=== PATIENT | female | born 1950 | race Caucasian/White ===

== ENCOUNTER 2017-11-25 08:25 | Emergency (ER) | payer MEDICARE, OTHER ==
[~2017-11-25 08:25] MED LIST: ALB17R INH; AZI250 PO; CEPH500C24 PO; CEPH500T7 PO; CHOL200022 PO; CHOL500050 PO; DOX100 PO; GUAI-225 PO; HYDR473S4 PO; LEVO50TA86 PO; LOSA50TA67 PO; LOSA50TA72 PO; LOSA50TA73 PO; MELO-207 PO; MELOXICAM PO; METF-411 PO; METFORMIN PO; METH4TAB66 PO; SCOT TD
[2017-11-25 08:28] VITALS: BP 143/91
--- NOTE | 2017-11-25 08:30 | ER Report ---
History and Physical Time Seen By MD: 08:29 HPI/ROS CHIEF COMPLAINT: Left leg pain HISTORY OF PRESENT ILLNESS: Patient is a 66-year-old female with known history of bilateral hip arthritis. She presents with worsening pain to her left leg that is mostly posterior worse with movement better rest. The pain seems to radiate from the left buttock area and proceeds down the back of the left thigh to approximately the knee. There is no history of recent injury. Patient has had similar symptoms on the right leg and has been diagnosed with sciatica in the past. REVIEW OF SYSTEMS: Respiratory: No cough, no dyspnea. Cardiovascular: No chest pain, no palpitations. Gastrointestinal: No vomiting, no abdominal pain. Musculoskeletal: No back pain. Left leg pain Allergies: Coded Allergies: codeine (Verified Adverse Reaction, Intermediate, NAUSEA, 11/25/17) Home Meds Active Scripts Methylprednisolone (METHYLPREDNISOLONE) 4 Mg Tab.ds.pk, 4 MG PO DIRECTED, # 21 TAB Prov:GERARDO GUZMAN MD 11/25/17 Meloxicam (MELOXICAM) 15 Mg Tablet, 1 TAB PO QDAY, #90 TAB 2 Refills Prov:FABY SCHAFER MD 11/12/17 Levothyroxine Sodium (LEVOTHYROXINE SODIUM) 50 Mcg Tablet, 1 TAB PO QDAY, #90 TAB 2 Refills Prov:FABY SCHAFER MD 11/11/17 Metformin Hcl (METFORMIN HCL) 500 Mg Tablet, 1 TAB PO QDAY, #90 TAB 3 Refills Prov:FABY SCHAFER MD 08/07/17 Losartan Potassium (LOSARTAN POTASSIUM) 50 Mg Tablet, 1 TAB PO BID, #180 TAB 3 Refills Prov:FABY SCHAFER MD 02/05/17 Cholecalciferol (Vitamin D3) (VITAMIN D) 2,000 Unit Tablet, 1 TAB PO QDAY, #8 CAPSULE Prov:FABY SCHAFER MD 03/22/15 Reported Medications Minocycline Hcl (MINOCYCLINE HCL) 100 Mg Capsule, 1 CAP PO QDAY, CAPSULE 11/27/17 [rosacea combo gel] No Conflict Check, 1 TIFFANIE TOP BID 11/27/17 Past Medical/Surgical History Past medical history for hypothyroidism, hypertension, type II diabetes, osteopenia Hx Smoking: No Smoking Status: Former Smoker Exposure to Second Hand Smoke?: Yes Constitutional Vital Sign - Last 24 Hours 11/25/17 08:28 Temp 97.5 Pulse 93 Resp 16 B/P (MAP) 143/91 Pulse Ox 94 O2 Delivery Room Air Physical Exam General Appearance: The patient is alert, has no immediate need for airway protection and no current signs of toxicity. Gastrointestinal: Abdomen is soft and non tender, no masses, bowel sounds normal. Musculoskeletal: Neck: Neck is supple and non tender. Extremities have full range of motion and are non tender. No numbness or tingling to either foot; patient has decreased strength with flexion at the hip left compared to right. Pain over sciatic notch. Skin: No rashes or lesions. [ ] DIFFERENTIAL DIAGNOSIS: After history and physical exam differential diagnosis was considered for Medical Decision Making ED Course/Re-evaluation ED Course 11/25/2017 8:57:38 am patient with atraumatic back pain that may have been exacerbated by a massage 2 months ago. Patient with left-sided sciatica. Plan will be prescription for Medrol Dosepak as an outpatient. Decision to Disposition Date: November 25, 2017 Decision to Disposition Time: 08:57 Depart Departure Latest Vital Signs Vital Signs Date Time Temp Pulse Resp B/P (MAP) Pulse Ox O2 Delivery O2 Flow Rate FiO2 11/25/17 08:28 97.5 93 16 143/91 94 Room Air Impression: Primary Impression: Sciatica Condition: Condition Unchanged Disposition: HOME OR SELF-CARE Referrals: FABY SCHAFRE MD (PCP) 1 Week if symptoms persist New Scripts Methylprednisolone (METHYLPREDNISOLONE) 4 Mg Tab.ds.pk 4 MG PO DIRECTED, #21 TAB Prov: GERARDO GUZMAN MD 11/25/17 Patient Instructions: Sciatica (DC) Problem Qualifiers Primary Impression: Sciatica Laterality: left Qualified Codes: M54.32 - Sciatica, left side GERARDO GUZMAN MD November 25, 2017 08:30
[2017-11-25] MEDS ORDERED: METH4TAB66 PO (08:59)
[2017-11-27] MEDS ORDERED: MINO100C27 PO (09:23)
[2017-11-27] MEDS ORDERED: [UNRECOGNIZED DRUG - REMARK] TOP (09:23)
== END 2017-11-25 09:07 | disposition home or self-care (01) ==
LOC: ER 08:35
DX: M54.32 Sciatica, left side (principal)
CPT/HCPCS: 99282

== ENCOUNTER → 2017-11-27 | Outpatient (CLI) | payer MEDICARE, OTHER ==
[~2017-11-27] MED LIST changes: +MINO100C27 PO; +[UNRECOGNIZED DRUG - REMARK] TOP
== END ==
LOC: LAB 09:34
PROVIDERS: ATTEND Internal Medicine
DX: I10 Essential (primary) hypertension (principal)
CPT/HCPCS: 36415; 82565

== ENCOUNTER → 2017-11-28 | Outpatient (CLI) | payer MEDICARE, OTHER ==
[~2017-11-28] MED LIST changes: +GADOBENATE 529MG/1ML 15ML VIAL IVP ONE
--- NOTE | 2017-11-28 12:57 | RADIOLOGY IMAGING REPORT ---
FACILITY: [facility] PATIENT NAME: Court Holden : 1950 MR: [id number] V: [id number] EXAM DATE: ORDERING PHYSICIAN: FABY SCHAFER TECHNOLOGIST: Location: [facility] Patient: Court Holden : 1950 Visit/Account:[id number] Date of Sevice: 11/28/2017 EXAMINATION: Lumbar spine MRI without IV contrast Lumbar spine MRI with IV contrast HISTORY: Left sciatica. COMPARISON: Lumbar spine MRI without contrast dated 05/03/2017. TECHNIQUE: Multi-planar, multi-sequence lumbar spine MRI was performed before and after IV contrast. CONTRAST: 15 mL of IV MultiHance FINDINGS: Alignment: Mild convex leftward curvature. Minimal retrolisthesis of L2 over L3, L3 over L4, and L4 o [place] L5. Vertebral marrow signal: Stable T1 hypointense, enhancing 11 mm bone marrow lesion in the left superi or posterior L5 vertebral body. Mild discogenic bone marrow edema at T10-T11, T11-T12, L2-L3, L3-L4, and L4-L5. Distal thoracic cord: Negative. Conus: negative, terminates at T12-L1 Cauda equina: Negative. Paravertebral soft tissues: Negative. Visualized abdominal and pelvic structures: Negative. Enhancement pattern: Enhancement in the L5 bone marrow lesion. Mild discogenic bone marrow enhancemen t at a few levels. Otherwise negative. Disc Spaces: Lower thoracic spine: Degenerative disc disease and facet hypertrophy in the lower thoracic spine wit h no significant stenosis. L1-2: Mild disc height loss with circumferential disc bulge and facet hypertrophy. No no significant spinal canal stenosis. Mild bilateral neural foraminal stenosis. Interval decrease in size of the sma ll right central disc extrusion that was seen on 05/03/2017 migrating inferiorly along the posterior L2 vertebral body. Otherwise no significant change. L2-3: Mild asymmetric right-sided disc height loss and disc osteophyte complex. Moderate facet hypert rophy. No significant spinal canal stenosis. Mild left and moderate right neural foraminal stenosis. No significant change. L3-4: Mild to moderate asymmetric right-sided disc height loss and disc osteophyte complex. Moderate facet hypertrophy and ligamentum flavum thickening. Mild to moderate spinal canal stenosis. Moderate bilateral neural foraminal stenosis. No significant change. L4-5: Mild to moderate asymmetric left-sided disc height loss and disc osteophyte complex. Left great er than right facet hypertrophy. Mild left lateral recess stenosis. Mild right and severe left neural foraminal stenosis. No significant change. L5-S1: Mild disc height loss and circumferential disc osteophyte complex. Severe facet hypertrophy wi th bilateral facet joint effusion. No significant spinal canal stenosis. Mild to moderate right and m oderate to severe left neural foraminal stenosis. IMPRESSION: 1. Stable indeterminate bone marrow lesion in the left superior posterior L5 vertebral body. 2. Multilevel degenerative disc disease and facet hypertrophy with multiple alignment abnormalities. Interval decrease in size of the right central L1-L2 disc extrusion. Otherwise no significant interva l change. Report Dictated By: Jt West MD at 11/28/2017 12:02 PM Report E-Signed By: Jt West MD at 11/28/2017 12:52 PM WSN:[email or web address]
== END ==
LOC: MRI 02:03
PROVIDERS: ATTEND Internal Medicine
DX: M47.897 Other spondylosis, lumbosacral region (principal)
CPT/HCPCS: 72158; A9577

== ENCOUNTER → 2018-01-27 | Outpatient (CLI) | payer MEDICARE, OTHER ==
[~2018-01-27] MED LIST changes: -GADOBENATE 529MG/1ML 15ML VIAL IVP ONE
--- NOTE | 2018-01-27 14:37 | RADIOLOGY IMAGING REPORT ---
FACILITY: [facility] PATIENT NAME: Court Holden : 1950 MR: [id number] V: [id number] EXAM DATE: ORDERING PHYSICIAN: FABY SCHAFER TECHNOLOGIST: Location: Patient: Court Holden : 1950 Visit/Account:[id number] Date of Sevice: 01/27/2018 DEXA Scan Clinical history: Osteopenia. Comparison: None available. LUMBAR SPINE: The bone mineral density (BMD) measured from L2-L4 correlates with a Z-score 3.8 and a T-score of 3.4 which is Normal as defined by the World Health Organization. The corresponding risk of fracture in the lumbar spine is Not increased compared with a young adult reference population. HIP: Bone mineral density (BMD) measured in the Left total hip region correlates with a Z-score 1.5 and a T-score of one which is Normal as defined by the World Health Organization. The corresponding risk o f fracture in the hip is Not increased compared with a young adult reference population. T score le ft femoral neck 0.5 Bone mineral density (BMD) measured in the Femoral Neck region measures 1.107 g/cm2. Impression: 1. Lumbar spine: Normal. 2. Left Hip: Normal. 3. Femoral Neck: Bone Mineral Density is 1.107 g/cm2 The next DEXA scan of this patient should include the following sites: L2-L4 and the left hip. FRAX? WHO Fracture Risk Assessment Tool link: <http://www.shef.ac.uk/FRAX/tool.jsp?locationValue=9> PLEASE NOTE: 1) The World Health Organization defines low BMD as follows: T-score Normal > -1 Osteopenia < -1 and > -2.5 Osteoporosis < -2.5 without fractures Established osteoporosis < -2.5 with fractures 2) In general, you may wish to consider: Diagnosis Treatment Follow-up DEXA Normal BMD Prevention 2-3 years Osteopenia Prevention/therapy 1-2 years Osteoporosis Therapy Yearly 3) Fracture risk estimated from the T-score is more accurate for vertebral fractures (often spontane ous) than for hip fractures. Report Dictated By: Emely Covington MD at 01/27/2018 1:59 PM Report E-Signed By: Emely Covington MD at 01/27/2018 2:32 PM WSN:[email or web address]
--- NOTE | 2018-01-27 17:25 | RADIOLOGY IMAGING REPORT ---
[place] [facility] [place] NAME: JANIS MOSER : [id number] MR: [id number] V: [id number] EXAM DATE: ORDERING PHYSICIAN: FABY SCHAFER TECHNOLOGIST: Yesica Carcamo PROCEDURE:BILATERAL DIGITAL SCREENING MAMMOGRAM WITH CAD ASSISTED INTERPRETATION & 3D TOMOSYNTHESIS COMPARISON:Prior mammograms 03/06/16, 03/02/15, 02/24/14, 02/23/13, 02/12/13, 02/12/12. INDICATIONS:screening FINDINGS: A small amount of fibroglandular tissue is seen throughout the breasts. The parenchymal pattern has remained stable allowing for difference in mammographic technique & patient positioning. There is no evidence of malignant appearing mass, malignant appearing calcifications or other secondary sign of malignancy in either breast. DIAGNOSTIC CATEGORY 1--NEGATIVE. RECOMMENDATIONS: ROUTINE MAMMOGRAM AND CLINICAL EVALUATION. IMPRESSION: BIRADS 1: Negative. No significant abnormality is seen. Dictated by: Emely Covington M.D. on 01/27/2018 at 15:46 Transcribed by: CHIKA on 01/27/2018 at 16:05 Approved by: Emely Cvoington M.D. on 01/27/2018 at 17:24 [facility]
== END ==
LOC: MAMO 01:08
PROVIDERS: ATTEND Internal Medicine
DX: Z12.31 Encounter for screening mammogram for malignant neoplasm of breast (principal); Z78.0 Asymptomatic menopausal state
CPT/HCPCS: 77063; 77067; 77080